=== PATIENT | female | born 1950 | race Caucasian/White ===

== ENCOUNTER 2022-10-09 11:17 | Day surgery (SDC) | payer MEDICARE, OTHER ==
[~2022-10-09 11:17] MED LIST: ALPRAZolam 0.25 MG TAB PO PRN; ASPIRIN 325 MG TAB PO PRN; HEPARIN SODIUM,PORCINE (1 ML) 2,500 UNIT in SODIUM CHLORIDE 0.9% 250 ML IRRIGATION PRN; HEPARIN SODIUM,PORCINE 10,000 UNIT in SODIUM CHLORIDE 0.9% 1,000 ML IRRIGATION PRN; SODIUM CHLORIDE 0.9% 1,000 ML in EMPTY BAG 1 BAG IV ONE; ZOLPIDEM 5 MG TAB PO PRN
[2022-10-09 11:46] VITALS: RESP 18; TEMP 98
[2022-10-09 11:48] LABS: Glucose,Whole Blood 126 mg/dL (70-110)
[2022-10-09 11:51] LABS: Basophils % (A) 0 %; Eosinophils # (A) 0.2 k/uL (0-0.7); Eosinophils % (A) 2 %; HCT 42.4 % (34.0-46.0); HGB 14.2 gm/dL (11.4-16.0); Lymphocytes % (A) 30 %; MCH 29.5 pg (25.0-35.0); MCHC 33.5 g/dL (31.0-37.0); MCV 88.1 fL (80.0-100.0); Mean Platelet Volume 10.3; Monocytes # (A) 0.5 k/uL (0-1.0); Monocytes % (A) 5 %; Neutrophils # (A) 5.8 k/uL (1.3-7.7); Neutrophils % (A) 60 %; Platelet Count 223 k/uL (150-450); RBC 4.81 m/uL (3.80-5.40); RDW 13.4 % (11.5-15.5); WBC 9.7 k/uL (3.8-10.6)
--- NOTE | 2022-10-09 13:09 | P.GSHP ---
History of Present Illness H&P Date: 10/09/22 Chief Complaint: left foot pain 72 year old female with left foot and toe pain secondary to 5th toe dry gangrene and severe PAD presents to the [facility] core[facility] for elective aortogram and runoff with possible left lower extremity revascularization. Denies any fevers, chills, chest pain or shortness of breath. - Review of Systems All systems: negative (what is mentioned in the PMH or HPI) Past Medical History Past Medical History: Diabetes Mellitus, GERD/Reflux, Hyperlipidemia, Hypertension, Skin Disorder, Thyroid Disorder, Vascular Disorder Additional Past Medical History / Comment(s): gangrene left baby toe History of Any Multi-Drug Resistant Organisms: None Reported Past Surgical History: Tonsillectomy Additional Past Surgical History / Comment(s): annmarie cataracts removed Past Anesthesia/Blood Transfusion Reactions: No Reported Reaction Smoking Status: Never smoker Medications and Allergies Home Medications Medication Instructions Recorded Confirmed Type Ergocalciferol [Vitamin D2 (1250 1,250 mcg PO WEEKLY 10/02/22 10/09/22 History Mcg = 42669 Iu)] Levothyroxine Sodium [Synthroid] 75 mcg PO DAILY 10/02/22 10/09/22 History Rosuvastatin Calcium 5 mg PO 1900 10/02/22 10/09/22 History cloNIDine HCL [Catapres] 0.3 mg PO QAM 10/02/22 10/09/22 History metFORMIN HCL [Glucophage] 1,000 mg PO BID 10/02/22 10/09/22 History ramipriL [Altace] 5 mg PO 1900 10/02/22 10/09/22 History Allergies Allergy/AdvReac Type Severity Reaction Status Date / Time Penicillins Allergy Nausea & Verified 10/02/22 15:38 Vomiting ibuprofen AdvReac Nausea & Verified 10/02/22 15:38 Vomiting Surgical - Exam Vital Signs Temp Pulse Resp BP Pulse Ox 98 F 100 18 143/92 98 10/09/22 11:44 10/09/22 11:44 10/09/22 11:44 10/09/22 11:44 10/09/22 11:44 - General well developed, well nourished, no distress - Eyes PERRL, normal ocular movement - ENT normal pinna - Respiratory normal expansion - Cardiovascular Rhythm: regular - Abdomen Abdomen: soft - Neurologic normal coordination - Psychiatric oriented to time, oriented to person, oriented to place non palpable DP or PT pulse on the left. 5th toe with dry gangrene. Results - Labs 10/09/22 11:38 Abnormal Lab Results - Last 24 Hours (Table) 10/09/22 Range/Units 11:41 POC Glucose (mg/dL) 126 H (70-110) mg/dL Assessment and Plan Assessment: Critical limb ischemia with left 5th toe gangrene Plan: To [facility] for aortogram and possible left lower extremity revascularization.
[2022-10-09] MEDS ORDERED: MIDAZOLAM 2 MG/2 ML VIAL IVP ONE (13:27)
[2022-10-09] MEDS ORDERED: fentaNYL (PF) 50 MCG/1 ML VIAL IVP ONE (13:27)
[2022-10-09] MEDS ORDERED: LIDOCAINE 1% INJ 10MG/ML (20 ML MDV) SQ ONE (13:28)
[2022-10-09] MEDS ORDERED: IOPAMIDOL-370 100ML BTL INJ ONE (13:50)
--- NOTE | 2022-10-09 14:11 | P.OP ---
Date of Procedure: 10/09/22 Description of Procedure: Preoperative diagnosis: Critical limb ischemia with left 5th toe gangrene Postop diagnosis: Critical limb ischemia with left fifth toe gangrene, left superficial femoral, popliteal artery occlusion, right below knee tibial artery atherosclerotic disease, right superficial femoral artery multiple areas of stenosis Procedure: Aortogram with bilateral lower extremity runoffs via right common femoral artery access under ultrasound guidance, selective left lower extremity angiogram third order Surgeon: Ken Anesthesia: Moderate sedation times 23 minutes Estimated blood loss: 5 mL Complications: None Condition: Stable Findings: Aorta: Patent without any evidence of significant atherosclerotic disease or stenosis Iliacs: Bilateral common, external and internal iliac arteries are patent without any evidence of significant atherosclerotic disease or stenosis Femorals: Bilateral common femoral and profundus femoris arteries are patent without any evidence of significant atherosclerotic his or stenosis. Bilateral superficial femoral arteries demonstrate multiple areas of stenosis with left distal SFA occlusion Popliteal: Right popliteal artery occlusion just low the knee. Left up to artery occlusion with reconstitution below the knee at the tibioperoneal trunk Tibials: Right anterior tibial posterior tibial and peroneal arteries are diminutive with significant disease throughout. Left tibioperoneal trunk is patent after reconstitution. Anterior tibial artery is occluded at the takeoff the reconstitution noted. Significant stenosis noted in the midportion of the anterior tibial artery. Two-vessel runoff to the ankle Operative narrative: After written informed consent was obtained the patient all risks benefits competitions were described the patient is brought to the [facility] and laid in a supine position. The area of the right groin was prepped and draped in the usual sterile fashion. Local anesthesia with moderate sedation was performed with continuous pulse ox monitoring and EKG monitoring. Utilizing ultrasound the right femoral artery was visualized and shown to be patent without any significant plaque. Utilizing a multipurpose needle under ultrasound guidance the artery was accessed. Guidewire was placed followed by 6-Greenlandic sheath. 035 Glidewire was then placed into the aorta followed by pigtail catheter. Angiogram was then obtained of the aorta. Catheter was then placed at the bifurcation and lower extremity runoffs were obtained. Once completed all guidewires, catheters and sheaths were removed and pressure was placed for hemostasis. Patient tolerated procedure well was sent to PACU for recovery. Patient will require a left femoral to below knee bypass and fifth toe amputation in the next coming weeks. Plan - Discharge Summary Discharge Rx Participant: Yes New Discharge Prescriptions: No Action ramipriL [Altace] 5 mg PO 1900 metFORMIN HCL [Glucophage] 1,000 mg PO BID Levothyroxine Sodium [Synthroid] 75 mcg PO DAILY Rosuvastatin Calcium 5 mg PO 1900 cloNIDine HCL [Catapres] 0.3 mg PO QAM Ergocalciferol [Vitamin D2 (1250 Mcg = 82779 Iu)] 1,250 mcg PO WEEKLY Discharge Medication List Ergocalciferol [Vitamin D2 (1250 Mcg = 42009 Iu)] 1,250 mcg PO WEEKLY 10/02/22 [History] Levothyroxine Sodium [Synthroid] 75 mcg PO DAILY 10/02/22 [History] Rosuvastatin Calcium 5 mg PO 1900 10/02/22 [History] cloNIDine HCL [Catapres] 0.3 mg PO QAM 10/02/22 [History] metFORMIN HCL [Glucophage] 1,000 mg PO BID 10/02/22 [History] ramipriL [Altace] 5 mg PO 1900 10/02/22 [History]
--- NOTE | 2022-10-09 14:41 | IR ---
EXAMINATION TYPE: IR angio abdominal w runoff DATE OF EXAM: 10/09/2022 COMPARISON: NONE HISTORY: Fluoroscopy time. Fluoroscopy was provided to the referring clinician.
[2022-10-09 16:51] VITALS: BP 161/78; PULSE 74
== END 2022-10-09 17:41 | disposition home or self-care (01) ==
LOC: CATHCVL 11:17
PROVIDERS: ATTEND Surgery
DX: E11.52 Type 2 diabetes mellitus with diabetic peripheral angiopathy with gangrene (principal); I70.269 Atherosclerosis of native arteries of extremities with gangrene, unspecified extremity; I77.1 Stricture of artery; E11.36 Type 2 diabetes mellitus with diabetic cataract; E07.9 Disorder of thyroid, unspecified; E78.5 Hyperlipidemia, unspecified; I10 Essential (primary) hypertension; K21.9 Gastro-esophageal reflux disease without esophagitis; Z79.84 Long term (current) use of oral hypoglycemic drugs; Z79.890 Hormone replacement therapy; Z88.0 Allergy status to penicillin; Z79.899 Other long term (current) drug therapy; Z85.828 Personal history of other malignant neoplasm of skin; Z98.890 Other specified postprocedural states; Z88.6 Allergy status to analgesic agent
CPT/HCPCS: 36200; 75625; 75716; 76937; 85025; C1894; C1769 ×3; J2250; J2001; Q9967; J3010

== ENCOUNTER → 2022-11-26 | Outpatient (CLI) | payer MEDICARE, OTHER ==
[~2022-11-26] MED LIST changes: -ALPRAZolam 0.25 MG TAB PO PRN; -ASPIRIN 325 MG TAB PO PRN; +DOBUTamine DRIP for NUC MED 500 MG in DEXTROSE/WATER 1 250ML.BAG IV PRN; -HEPARIN SODIUM,PORCINE (1 ML) 2,500 UNIT in SODIUM CHLORIDE 0.9% 250 ML IRRIGATION PRN; -HEPARIN SODIUM,PORCINE 10,000 UNIT in SODIUM CHLORIDE 0.9% 1,000 ML IRRIGATION PRN; -SODIUM CHLORIDE 0.9% 1,000 ML in EMPTY BAG 1 BAG IV ONE; -ZOLPIDEM 5 MG TAB PO PRN
--- NOTE | 2022-11-26 13:39 | CA ---
Dobutamine Stress Echocardiogram Report Fany Forman Age: 72 Gender: F : 1950 Exam Date: 11/26/2022 10:40 Exam Location: [facility] Ordering Physician: Kp Verma DO ([id number]) Referring Physician: Kp Verma DO Mica Builder: Chauncey Anaya Technologist: Ht (in): 67 Wt (lb): 146 Procedure CPT: Indication: Z01.810, R06.02 shortness of breath ICD-9 Codes: Rhythm: Patient History: HTN, DM, FAMILY HX(FATHER) Cardiac Medications: METFORMIN, IBUPROFEN, RHAMPHIACL, LEVOTHYROXINE Medications in past 24 hours: Contrast: Total Dose (mL): Stress Results Protocol: Dobutamine Peak Dose (???g/kg/min): 30 Duration (min:sec): Atropine:(mg) Target HR: 127 Double Product: [id number] Resting HR: 88 Resting BP: 171 / 90 Peak HR: 137 Peak BP: 209 / 64 Max Predicted HR: 149 92 % Max Predicted HR Stress Summary: BP Response: Reason for Termination: Exceeded target heart rate (85% max predicted) Cardiac Symptoms: ASYMPTOMATIC ECG Analysis Resting EKG: Stress EKG: Arrhythmia: Echo Analysis Base Echo Analysis: Low Echo Anaylsis: Peak Echo Analysis: Recovery Echo: MEASUREMENTS (Male/Female) Normal Values CONCLUSIONS No ECG or echocardiographic evidence for ischemia Stepwise augmentation of overall LV contractility without development of any wall motion abnormalities with dobutamine infusion Normal duodenum a stress echo Dr. Ulisses Cam MD (Electronically Signed) Final Date: 26 November 2022 13:38
--- NOTE | 2022-11-26 14:03 | CA ---
Transthoracic Echo Report Name: Fany Forman Age: 72 Gender: F : 1950 Exam Date: 11/26/2022 11:26 Exam Location: [facility] Ht (in): 67 Wt (lb): 140 Ordering Physician: Kp Verma DO ([id number]) Attending/Referring Phys: Health Technical Writer Yasemin Victor RDCS Procedure CPT: Indications: Z01.810, R06.02 shortness of breath Cardiac Hx: DM Technical Quality: Good Contrast 1: Total Dose (mL): Contrast 2: Total Dose (mL): MEASUREMENTS (Male / Female) Normal Values 2D ECHO LV Diastolic Diameter PLAX 3.7 cm 4.2 - 5.9 / 3.9 - 5.3 cm LV Systolic Diameter PLAX 2.4 cm IVS Diastolic Thickness 1.4 cm 0.6 - 1.0 / 0.6 - 0.9 cm LVPW Diastolic Thickness 1.3 cm 0.6 - 1.0 / 0.6 - 0.9 cm LV Relative Wall Thickness 0.7 RV Internal Dim ED PLAX 2.9 cm LA Systolic Diameter LX 3.7 cm 3.0 - 4.0 / 2.7 - 3.8 cm LV Diastolic Volume MOD 4C 60.3 cm??? LV Systolic Volume MOD 4C 25.7 cm??? LV Ejection Fraction MOD 4C 57.4 % LV Cardiac Index MOD 4C 1819.5 cm???/min???m??? LV Diastolic Length 4C 6.3 cm LV Systolic Length 4C 4.6 cm LV Diastolic Volume MOD 2C 58.1 cm??? LV Systolic Volume MOD 2C 26.1 cm??? LV Ejection Fraction MOD 2C 55.2 % LV Cardiac Index MOD 2C 1683.2 cm???/min???m??? LV Diastolic Length 2C 6.1 cm LV Systolic Length 2C 5.3 cm LA Volume 53.8 cm??? 18 - 58 / 22 - 52 cm??? LA Volume Index 31.0 cm???/m??? 16 - 28 cm???/m??? M-MODE Aortic Root Diameter MM 3.5 cm MV E Point Septal Separation 0.7 cm AV Cusp Separation MM 2.4 cm DOPPLER MV E' Velocity 3.6 cm/s TR Peak Velocity 228.6 cm/s TR Peak Gradient 20.9 mmHg Right Ventricular Systolic Press 25.5 mmHg FINDINGS Left Ventricle Left ventricular ejection fraction is estimated at 55-60 %. Small left ventricular cavity. Moderately increased septal wall thickness. Mildly increased posterior wall thickness. Right Ventricle Normal right ventricular size. Right ventricular systolic pressure within normal limits. Right Atrium Normal right atrial size. Left Atrium Mildly increased left atrial volume. Mitral Valve Structurally normal mitral valve. Trace to mild mitral regurgitation. Aortic Valve Trileaflet aortic valve. No aortic valve stenosis or regurgitation. Tricuspid Valve Structurally normal tricuspid valve. Mild tricuspid regurgitation. Pulmonic Valve Structurally normal pulmonic valve. Trace pulmonic regurgitation. Pericardium No pericardial effusion. Aorta Normal size aortic root and proximal ascending aorta. CONCLUSIONS LVH with preserved systolic function Previewed by: Dr. Ulisses Cam MD (Electronically Signed) Final Date: 26 November 2022 14:03
== END | disposition home or self-care (01) ==
LOC: RADNMMAIN 09:48
PROVIDERS: ATTEND Internal Medicine
DX: Z01.810 Encounter for preprocedural cardiovascular examination (principal); R06.02 Shortness of breath
CPT/HCPCS: 93306; 93351

== ENCOUNTER → 2022-12-17 | Outpatient (CLI) | payer MEDICARE, OTHER ==
[2022-12-17 10:33] LABS: Partial Thromboplastin Time 24.2 sec (22.0-30.0)
[2022-12-17 16:46] LABS: Basophils # (A) 0.05 X 10*3/uL (0.00-0.10); Basophils % (A) 0.7 %; Eosinophils # (A) 0.14 X 10*3/uL (0.04-0.35); Eosinophils % (A) 1.9 %; HCT 43.6 % (37.2-46.3); HGB 13.8 g/dL (12.0-15.0); Lymphocytes # (A) 2.27 X 10*3/uL (0.90-5.00); Lymphocytes % (A) 30.9 %; MCH 28.4 pg (27.0-32.0); MCHC 31.7 g/dL (32.0-37.0); MCV 89.7 FL (80.0-97.0); Monocytes # (A) 0.37 X 10*3/uL (0.20-1.00); NRBC Per 100 WBC 0 X 10*3/uL (0.00-0.01); Neutrophils # (A) 4.49 X 10*3/uL (1.80-7.70); Neutrophils % (A) 61.2 %; Platelet Count 254 X 10*3/uL (140-440); RBC 4.86 X 10*6/uL (4.10-5.20); RDW 13.2 % (11.5-14.5); WBC 7.34 X 10*3/uL (4.50-10.00)
== END | disposition home or self-care (01) ==
LOC: LABWHC1 08:53
PROVIDERS: ATTEND Surgery
DX: Z01.812 Encounter for preprocedural laboratory examination (principal); I73.9 Peripheral vascular disease, unspecified
CPT/HCPCS: 36415; 85025; 85610; 85730; 86850; 86900; 86901

== ENCOUNTER 2022-12-21 09:03 | Inpatient (IN) | payer MEDICARE, OTHER ==
[~2022-12-21 09:03] MED LIST changes: +DEXAMETHASONE SOD PHOSPHATE 4 MG/ML 1 ML VIAL IV ONE; -DOBUTamine DRIP for NUC MED 500 MG in DEXTROSE/WATER 1 250ML.BAG IV PRN; +HYDROmorphone 0.5 MG/0.5 ML SYRINGE IVP PRN; +LIDOCAINE 1% (10MG/ML) FOR IV START INTRADERMA PRN; +ONDANSETRON 4 MG/2 ML VIAL IVP ONE; +droPERidol 5 MG/2 ML VIAL IVP ONE
[2022-12-21 10:21] LABS: Glucose,Whole Blood 128 mg/dL (70-110)
[2022-12-21] MEDS: LACTATED RINGERS 1,000 ML IV SCH (10:31)
[2022-12-21] MEDS ORDERED: MIDAZOLAM 2 MG/2 ML VIAL IVP ONE (11:04)
--- NOTE | 2022-12-21 11:32 | P.ANPRN ---
Procedure Note - Anesthesia - Invasive Line Left Arterial Line Time Out Performed: Yes (1103) Date of Procedure: 12/21/22 Time of Procedure: 11:04 Location of Patient: PreOp Preparation: Sterile Prep, Sterile Dressing Arterial Line Location: Briachial (left attempts x2) Ultrasound Used: Yes Purpose - Visualization and Identification of Vasculature: Yes Needle Guage: 20g Image Stored and Saved: Yes Narrative: Central line placement per sterile protocol utilized. attempts x2
[2022-12-21] MEDS ORDERED: THROMBIN (BOVINE) 5,000 UNIT VIAL TOPICAL ONE (12:05)
[2022-12-21] MEDS ORDERED: GELATIN SPONGE,ABSORB (LARGE) 1 EACH SPONGE TOPICAL ONE (12:05)
[2022-12-21] MEDS ORDERED: LIDOCAINE 1% INJ 10MG/ML (20 ML MDV) SQ ONE (12:05)
[2022-12-21] MEDS ORDERED: SUCCINYLCHOLINE CHLORIDE 200 MG/10 ML VIAL IV ONE (12:12)
[2022-12-21] MEDS ORDERED: NEOSTIGMINE 1 MG/ML 10 ML VIAL ONE (12:12)
[2022-12-21] MEDS ORDERED: HYDROmorphone (PF) 1 MG/ML ONE (12:12)
[2022-12-21] MEDS ORDERED: MIDAZOLAM 2 MG/2 ML VIAL ONE (12:12)
[2022-12-21] MEDS ORDERED: GLYCOPYRROLATE 0.2 MG/ML 2 ML VIAL ONE (12:12)
[2022-12-21] MEDS ORDERED: fentaNYL (PF) 50 MCG/ML 2 ML AMP ONE (12:12)
[2022-12-21] MEDS ORDERED: PROPOFOL 10 MG/ML 20 ML VIAL IV ONE (12:12)
[2022-12-21] MEDS ORDERED: LIDOCAINE 1% INJ 10MG/ML (20 ML MDV) ONE (12:12)
[2022-12-21] MEDS ORDERED: HEPARIN SODIUM,PORCINE 10,000 UNIT/ML 1 ML VIAL ONE (12:12)
[2022-12-21] MEDS ORDERED: PHENYLEPHRINE 10 MG/ML 5 ML VIAL ONE (12:12)
[2022-12-21] MEDS ORDERED: ePHEDrine 50 MG/ML 1 ML VIAL ONE (12:12)
[2022-12-21] MEDS ORDERED: ROCURONIUM 10 MG/ML (5 ML VIAL) IV ONE (12:12)
--- NOTE | 2022-12-21 12:16 | P.GSHP ---
History of Present Illness H&P Date: 12/21/22 Chief Complaint: left 5th toe gangrene, femoral occlusion 72 year old female with critical limb ischemia and left 5th toe gangrene presents today for left femoral-popliteal below knee bypass with in-situ greater saphenous vein. She had previous arterial doppler and angiogram which demonstrated TASC D lesion and need for bypass. She denies any fevers, chills, chest pain or shortness of breath. - Review of Systems All systems: negative (what is mentioned in the PMH or HPI) Past Medical History Past Medical History: Diabetes Mellitus, GERD/Reflux, Hyperlipidemia, Hypertension, Thyroid Disorder, Vascular Disorder Additional Past Medical History / Comment(s): Gangrene left baby toe, left lower extremity claudication, NIDDM type II, History of Any Multi-Drug Resistant Organisms: None Reported Past Surgical History: Tonsillectomy Additional Past Surgical History / Comment(s): Aortagrams with run-offs, annmarie cataracts removed Past Anesthesia/Blood Transfusion Reactions: No Reported Reaction Additional Past Anesthesia/Blood Transfusion Reaction / Comment(s): 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 Medications and Allergies Home Medications Medication Instructions Recorded Confirmed Type Ergocalciferol [Vitamin D2 (1250 1,250 mcg PO CAI 10/02/22 12/16/22 History Mcg = 21035 Iu)] Levothyroxine Sodium [Synthroid] 75 mcg PO QAM 10/02/22 12/16/22 History Rosuvastatin Calcium 5 mg PO 1900 10/02/22 12/16/22 History cloNIDine HCL [Catapres] 0.3 mg PO QAM 10/02/22 12/16/22 History metFORMIN HCL [Glucophage] 1,000 mg PO BID 10/02/22 12/16/22 History ramipriL [Altace] 5 mg PO 1900 10/02/22 12/16/22 History Allergies Allergy/AdvReac Type Severity Reaction Status Date / Time Penicillins Allergy Nausea & Verified 12/21/22 09:50 Vomiting ibuprofen AdvReac Nausea & Verified 12/21/22 09:50 Vomiting Surgical - Exam Vital Signs Temp Pulse Resp BP Pulse Ox 97.1 F L 104 H 16 152/74 98 12/21/22 10:05 12/21/22 10:05 12/21/22 10:05 12/21/22 10:05 12/21/22 10:05 - General well developed, well nourished, no distress - Eyes PERRL, normal ocular movement - ENT normal pinna, normal nares - Neck no masses - Respiratory normal expansion, normal respiratory effort - Cardiovascular Rhythm: regular - Abdomen Abdomen: soft, non tender - Integumentary no rash, no growths - Neurologic normal coordination, no normal sensation - Psychiatric oriented to time, oriented to person, oriented to place non palpable DP or PT pulse on the left Results - Labs Abnormal Lab Results - Last 24 Hours (Table) 12/21/22 Range/Units 10:19 POC Glucose (mg/dL) 128 H (70-110) mg/dL Assessment and Plan Assessment: left lower extremity critical limb ischemia left femoral artery occlusive disease left 5th toe gangrene Plan: To OR for left femoral- below knee bypass and 5th toe amputation.
[2022-12-21] MEDS ORDERED: ceFAZolin 4,000 MG in SODIUM CHLORIDE 0.9% 1,000 ML IRRIGATION ONE (12:17)
[2022-12-21] MEDS ORDERED: HEPARIN SODIUM,PORCINE 10,000 UNIT in SODIUM CHLORIDE 0.9% 1,000 ML IRRIGATION ONE (12:17)
[2022-12-21] MEDS ORDERED: LACTATED RINGERS 1,000 ML IV ONE (14:56)
[2022-12-21] MEDS ORDERED: MORPHINE SULFATE 4 MG/ML SYRINGE IVP PRN (17:27)
--- NOTE | 2022-12-21 17:27 | P.OP ---
Date of Procedure: 12/21/22 Description of Procedure: Preoperative diagnosis: Left critical limb ischemia with fifth toe gangrene. Left femoral, popliteal artery occlusion Postoperative diagnosis: Same Procedure: Left Femoral-tibial artery bypass with in situ greater saphenous vein graft. Left 5th toe amputation Surgeon: Oliver Rogers D.O. Anesthesia: General Estimated blood loss: 100cc Complications: None Condition: Stable Disposition: Palpable left PT pulse Indication for procedure: 72 year old female with history of left 5th toe gangrene, PAD with recent angiogram demonstrating occlusion of left SFA and popliteal artery with reconstitution below knee tibial peroneal trunk. Presents to the hospital for femoral tibial bypass and 5th toe amputation. Operative narrative: After written and informed consent was obtained from the patient all risks benefits and competitions were described the patient is brought to the operative suite and laid in a supine position. The area of the abdomen, left lower extremity was prepped and draped in usual sterile fashion after appropriate anesthetic was performed per the anesthesiologist. A timeout was performed in normal fashion. Antibiotics were administered prior to incision. An oblique incision was created at the left groin and dissection was carried down to the common femoral artery. The common femoral, superficial femoral and profundus femoris arteries were dissected free in a circumferential manner and controlled with vessel loops. Attention was then placed to the greater saphenous vein which was dissected free up to the saphenofemoral junction. A vessel loop was then placed around this area. Attention was then placed distally and a transverse incision was created on the medial aspect of the lower leg just below the knee with a 15 blade scalpel. Dissection was then carried down with electrocautery through the fascia to the popliteal artery. Popliteal artery, tibioperoneal trunk was then dissected free in a circumferential manner and controlled with vessel loops. The anterior tibial artery was also dissected free and visualized. Once controlled attention was then placed to dissection of the greater saphenous vein. Meticulous dissection was then performed of the greater saphenous vein and controlled with a blue vessel loop. Patient was then administered heparin. The proximal greater saphenous vein was then resected and suture ligated at the saphenofemoral junction. The vein was then brought over to the femoral artery and the artery was clamped both proximally and distally. Arteriotomy was then created with 11 blade scalpel and extended with Pott Wall scissors. End-to-side anastomosis was then created with 6-0 Prolene suture in a running fashion after the vein was dilated with serial dilation. Good backbleeding was noted from the vein and good brisk forward bleeding was noted from the artery. Final sutures were then placed good pulsatile blood flow was noted within the vein bypass. The vein was then ligated distally and utilizing a valvulotome the valves were destroyed up to the proximal aspect at the previous anastomosis until there was good pulsatile bleeding noted through the bypass. The tibial peroneal trunk was then controlled and arteriotomy was created with 11 blade scalpel and extended with Pott Wall scissors. There was good backbleeding noted. The vein was then spatulated and an end-to-side anastomosis was created with 6-0 Prolene suture in a running fashion. Prior to last sutures being placed backbleeding was once again assessed which was adequate and proximal control was released revealing good pulsatile blood flow. Final sutures were placed and good pulsatile blood flow was noted within the bypass. Doppler signals were then noted distal to the bypass and were multiphasic. The areas were then copiously irrigated with antibiotic solution. The incisions were then closed in a multilayer fashion after hemostasis was assured with Gelfoam and thrombin and the skin was then cleansed and dressings were placed. Attention was then placed to the fifth toe amputation. A racquet incision was then created around the fifth toe with a 15 blade scalpel and dissection was carried down to the metatarsal bone which was removed with bone cutters. The toe was then sent off for pathology. Hemostasis was assured with electrocautery. The area was irrigated and suctioned dry. Incision was then closed with 3-0 nylon suture in a vertical mattress fashion. The patient tolerated procedure well, and had a palpable PT pulse and was sent to PACU for recovery.
[2022-12-21 17:28] LABS: Glucose,Whole Blood 166 mg/dL (70-110)
[2022-12-21] MEDS ORDERED: HYDROmorphone 0.5 MG/0.5 ML SYRINGE IVP ONE (17:54)
[2022-12-21] MEDS ORDERED: LABETALOL SYRINGE 5 MG/ML (4 ML SYR) IVP ONE (18:12)
[2022-12-21 20:17] VITALS: RESP 16
[2022-12-21 20:47] LABS: Glucose,Whole Blood 203 mg/dL (70-110)
[2022-12-21] MEDS ORDERED: DEXTROSE 50% SYRINGE 50 ML IVP PRN ×2 (21:14)
[2022-12-21] MEDS: metFORMIN 500 MG TAB PO SCH (21:56)
[2022-12-21] MEDS: INSULIN ASPART (NovoLOG) 100 UNIT/ML VIAL SQ SCH (21:56)
[2022-12-21] MEDS: SODIUM CHLORIDE 0.9% 1,000 ML IV SCH (22:12)
[2022-12-21] MEDS: MORPHINE SULFATE 2 MG/ML SYRINGE IVP PRN (22:17)
[2022-12-22] MEDS: MORPHINE SULFATE 2 MG/ML SYRINGE IVP PRN ×3 (01:10→06:41)
[2022-12-22 06:13] LABS: Glucose,Whole Blood 122 mg/dL (70-110)
[2022-12-22] MEDS: INSULIN ASPART (NovoLOG) 100 UNIT/ML VIAL SQ SCH ×3 (06:24→16:49)
[2022-12-22] MEDS: SODIUM CHLORIDE 0.9% 1,000 ML IV SCH ×2 (06:24→16:45)
[2022-12-22] MEDS: LEVOTHYROXINE 75 MCG TAB PO SCH (06:40)
[2022-12-22] MEDS: LACTATED RINGERS 1,000 ML IV SCH (08:28)
[2022-12-22] MEDS: cloNIDine HCL 0.1 MG TAB PO SCH (08:43)
[2022-12-22] MEDS: metFORMIN 500 MG TAB PO SCH ×2 (08:43→21:00)
[2022-12-22] MEDS ORDERED: HYDROcodone/APAP 5-325MG 1 EACH TAB PO PRN (08:52)
--- NOTE | 2022-12-22 10:22 | P.PN ---
Subjective Progress Note Date: 12/22/22 Principal diagnosis: Left critical limb ischemia with fifth toe gangrene Patient is seen and examined today as a follow-up. She is postop day #1 for left femoral tibial artery bypass with in situ vein graft. Left fifth toe amputation. She states she does have some pain at the left groin incision site as well as some pain/burning her left fifth toe amputation site. She still has Akhtar catheter in place and has been on bed rest. She denies any chest pain, shortness of breath, abdominal pain, nausea or vomiting. She is afebrile. Objective - Vital Signs Vital signs: Vital Signs Temp 97.9 F 12/22/22 04:40 Pulse 78 12/22/22 04:40 Resp 16 12/22/22 04:40 BP 125/59 12/22/22 04:40 Pulse Ox 95 12/22/22 04:40 FiO2 Intake & Output 12/21/22 12/22/22 12/22/22 18:59 06:59 18:59 Intake Total 1852 Output Total 530 850 Balance 1322 -850 Weight 66.3 kg Intake: IV 1852 Output: Urine 430 850 Estimated Blood Loss 100 Other: Voiding Method Indwelling Catheter - Exam General appearance: The patient is alert, oriented, appears in no acute distress. HET: Head is normocephalic and atraumatic. Pupils are equal and reactive. Neck: Supple. Heart: Regular. Lungs: Equal expansion, normal respiratory effort. Abdomen: Soft, nontender, nondistended. Extremities: Normal skin color and turgor. Left groin with Prevena dressing in place with good suction. Palpable left lower extremity graft. Left foot with dressing clean dry and intact. Neurological: No focal deficits. - Labs Labs: Abnormal Lab Results - Last 24 Hours (Table) 12/21/22 12/21/22 12/21/22 Range/Units 10:19 17:27 20:45 POC Glucose (mg/dL) 128 H 166 H 203 H (70-110) mg/dL 12/22/22 Range/Units 06:11 POC Glucose (mg/dL) 122 H (70-110) mg/dL Assessment and Plan Assessment: 1. Postop day #1 left femoral tibial artery bypass with in situ greater saphenous vein graft and left fifth toe amputation 2. Left femoral-popliteal artery occlusion 3. Left critical limb ischemia with fifth toe gangrene 4. Diabetes mellitus 5. Hyperlipidemia 6. Hypertension 7. Thyroid disorder Plan: 1. Postop shoe to left foot 2. Encourage ambulation, heel walk only on left foot 3. Discontinue Akhtar catheter 4. Leave dressing in place, will change left foot dressing tomorrow 5. Anticipate discharge tomorrow The impression and plan of care has been dictated as directed. I performed a history and examination of this patient, discussed the same with the dictator. I agree with the dictator's note ,documented as a scribe. Any additional findings or plans will be noted.
[2022-12-22 11:36] LABS: Glucose,Whole Blood 142 mg/dL (70-110)
[2022-12-22 16:08] LABS: Glucose,Whole Blood 153 mg/dL (70-110)
[2022-12-22] MEDS ORDERED: lisinopriL 20 MG TAB PO SCH (19:00)
[2022-12-22] MEDS ORDERED: ATORVASTATIN 10 MG TAB PO SCH (19:00)
[2022-12-22 20:21] LABS: Glucose,Whole Blood 127 mg/dL (70-110)
[2022-12-23] MEDS: INSULIN ASPART (NovoLOG) 100 UNIT/ML VIAL SQ SCH ×3 (05:43→12:31)
[2022-12-23 06:31] LABS: Glucose,Whole Blood 112 mg/dL (70-110)
[2022-12-23] MEDS: LEVOTHYROXINE 75 MCG TAB PO SCH (06:40)
--- NOTE | 2022-12-23 06:43 | P.DS ---
Providers Date of admission: 12/21/22 09:03 Expected date of discharge: 12/23/22 Attending physician: Oliver Rogers DO Primary care physician: Chantal Mejia [facility] Course: 72-year-old female who had critical limb ischemia and left fifth toe gangrene due to femoral occlusion presented for a left femoral popliteal below the knee bypass with in situ greater saphenous vein. She is postop day #2. She has been up and ambulating. Her pain has been well-controlled. She's been afebrile. Patient has been unable to void on her own since surgery. She has been straight cathed through the night per 750 mL clear yellow urine early this morning. She has palpable left lower extremity bypass. Left fifth toe amputation site clean dry and intact. She has a Prevena wound vac in place. Urology was consulted and had seen and evaluated patient. Patient was able to void small amount. They recommend monitoring patient for a couple more hours and if she is able to void on her own may be discharged otherwise will need to be discharged with Akhtar catheter with follow-up urology in 1-2 weeks. WBC 11.4 hemoglobin 11.1 and platelet count 151,000 sodium 137 potassium 3.6 BUN 10 creatinine 0.68 glucose 147 Exam General appearance: The patient is alert, oriented, appears in no acute distress. HET: Head is normocephalic and atraumatic. Pupils are equal and reactive. Neck: Supple. Heart: Regular. Lungs: Equal expansion, normal respiratory effort. Abdomen: Soft, nontender, nondistended. Extremities: Normal skin color and turgor. Left groin with Prevena dressing in place with good suction. Palpable left lower extremity bypass the warm to the touch. Left foot with dressing clean dry and intact. Incision site with sutures well approximated. Neurological: No focal deficits. Assessment: 1. Postop day #2 left femoral tibial artery bypass with in situ greater saphenous vein graft and left fifth toe amputation 2. Left femoral-popliteal artery occlusion 3. Left critical limb ischemia with fifth toe gangrene 4. Diabetes mellitus 5. Hyperlipidemia 6. Hypertension 7. Thyroid disorder 8. Postop urinary retention Plan: 1. Postop shoe to left foot 2. Encourage ambulation, heel walk only on left foot 3. Keep Prevena dressing in place until 12/28/22 4. Dressing changed to left fifth toe amputation site 5. Consult urology for postop urinary retention 6. Discharge instructions reviewed with patient. Patient verbalized understanding. 7. Discharge home with home health care pending clearance from urology The impression and plan of care has been dictated as directed. I performed a history and examination of this patient, discussed the same with the dictator. I agree with the dictator's note ,documented as a scribe. Any additional findings or plans will be noted. Procedures: Preoperative diagnosis: Left critical limb ischemia with fifth toe gangrene. Left femoral, popliteal artery occlusion Postoperative diagnosis: Same Procedure: Left Femoral-tibial artery bypass with in situ greater saphenous vein graft. Left 5th toe amputation Surgeon: Oliver Rogers D.O. Patient Condition at Discharge: Stable Plan - Discharge Summary Discharge Rx Participant: No New Discharge Prescriptions: New HYDROcodone/APAP 5-325MG [Garita 5-325] 1 each PO Q6HR PRN #12 tab PRN Reason: Pain Scale 6 To 7 Clopidogrel [Plavix] 75 mg PO DAILY #30 tab Continue ramipriL [Altace] 5 mg PO 1900 metFORMIN HCL [Glucophage] 1,000 mg PO BID Levothyroxine Sodium [Synthroid] 75 mcg PO QAM Rosuvastatin Calcium 5 mg PO 1900 cloNIDine HCL [Catapres] 0.3 mg PO QAM Ergocalciferol [Vitamin D2 (1250 Mcg = 86620 Iu)] 1,250 mcg PO CAI Discharge Medication List Ergocalciferol [Vitamin D2 (1250 Mcg = 66853 Iu)] 1,250 mcg PO CAI 10/02/22 [History] Levothyroxine Sodium [Synthroid] 75 mcg PO QAM 10/02/22 [History] Rosuvastatin Calcium 5 mg PO 1900 10/02/22 [History] cloNIDine HCL [Catapres] 0.3 mg PO QAM 10/02/22 [History] metFORMIN HCL [Glucophage] 1,000 mg PO BID 10/02/22 [History] ramipriL [Altace] 5 mg PO 1900 10/02/22 [History] Clopidogrel [Plavix] 75 mg PO DAILY #30 tab 12/23/22 [Rx] HYDROcodone/APAP 5-325MG [Garita 5-325] 1 each PO Q6HR PRN #12 tab 12/23/22 [Rx] Follow up Appointment(s)/Referral(s): Jackie Cornejo MD [Primary Care Provider] - 1 Week Oliver Rogers DO [STAFF PHYSICIAN] - 2 Weeks Guillaume Mcfadden MD [STAFF PHYSICIAN] - 1 Week (I would see her in 1 week if she goes home with a Akhtar. If she does not go home with the Akhtar then I do not need to see her.) [employer] [NON-STAFF] - (Check with them if you want a shower chair. ) Patient Instructions/Handouts: *Surgery [facility] - Akhtar Catheter Instructions, Clopidogrel (By mouth), Femoropopliteal Bypass (DC) Activity/Diet/Wound Care/Special Instructions: No driving until cleared by surgeon Avoid heavy lifting greater than 10 lbs , pushing, pulling, straining, flights of stairs for 2 weeks Sponge bath only until left groin dressing discontinued then may shower but no tub baths or soaking until cleared by surgeon signs of infection ie: fever, rash, drainage from puncture site, swelling contact doctor or return to ER immediately. Heavy bleeding from puncture site apply firm direct pressure and return to ER. Do not attempt to drive self. low sodium/low fat diet Keep left groin Prevena dressing in place for 6 days. May shut off, remove and discard on 12/28/2022 Where postop shoe to left foot, heel walk only Dressing change daily with 4 x 4 and Kerlix [facility] [phone] Discharge/Stand Alone Forms: Who Do I Call? Discharge Disposition: HOME WITH HOME HEALTH SERVICES
[2022-12-23] MEDS: SODIUM CHLORIDE 0.9% 1,000 ML IV SCH (09:23)
[2022-12-23] MEDS: LACTATED RINGERS 1,000 ML IV SCH (09:23)
[2022-12-23] MEDS: metFORMIN 500 MG TAB PO SCH (09:26)
[2022-12-23] MEDS: cloNIDine HCL 0.1 MG TAB PO SCH (09:26)
[2022-12-23] MEDS ORDERED: CLOPIDOGREL 75 MG TAB PO SCH (10:00)
[2022-12-23 11:02] VITALS: TEMP 98.3
[2022-12-23 11:04] LABS: HCT 34.2 % (34.0-46.0); HGB 11.1 gm/dL (11.4-16.0); MCH 28.8 pg (25.0-35.0); MCHC 32.6 g/dL (31.0-37.0); MCV 88.4 fL (80.0-100.0); Mean Platelet Volume 10.1; Platelet Count 151 k/uL (150-450); RBC 3.87 m/uL (3.80-5.40); RDW 13.4 % (11.5-15.5); WBC 11.4 k/uL (3.8-10.6)
[2022-12-23 11:15] LABS: African American GFR (CKD) >90 (>60 ml/min/1.73 sqM); Anion Gap 7 mmol/L; Blood Urea Nitrogen 10 mg/dL (7-17); Calcium 8.8 mg/dL (8.4-10.2); Carbon Dioxide 24 mmol/L (22-30); Chloride 106 mmol/L (98-107); Glucose 147 mg/dL (74-99); Non-African American GFR(CKD) 88 (>60 ml/min/1.73 sqM); Potassium 3.6 mmol/L (3.5-5.1); Sodium 137 mmol/L (137-145)
[2022-12-23 11:40] LABS: Glucose,Whole Blood 150 mg/dL (70-110)
--- NOTE | 2022-12-23 12:25 | P.GSCN ---
History of Present Illness Consult date: 12/23/22 History of present illness: 72-year-old female who underwent a left fem-pop bypass and fifth toe amputation on the left foot yesterday. She has postoperative urine retention a few times, up to 700 mL We are asked see the patient. There is a family history of postoperative retention. She has never had postoperative retention. The first time she's ever been in the hospital. She denies problems urinating, incontinence infections vaginal issues or bladder issues prior to hospitalization Review of Systems All systems: negative - Constitutional Denies fever, Denies weight loss - EENT Eyes: denies blurred vision Ears, nose, mouth and throat: Denies dysphagia - Cardiovascular Denies chest pain, Denies shortness of breath - Respiratory Denies cough, Denies 7 - Gastrointestinal Reports as per HPI - Genitourinary Genitourinary: Denies dysuria, Denies hematuria - Integumentary Denies rash, Denies unusual bruising - Neurological Denies headaches, Denies syncope - Hematologic/Lymphatic Denies easy bleeding, Denies easy bruising Past Medical History Past Medical History: Diabetes Mellitus, GERD/Reflux, Hyperlipidemia, Hypertension, Thyroid Disorder, Vascular Disorder Additional Past Medical History / Comment(s): Gangrene left baby toe, left lower extremity claudication, NIDDM type II, History of Any Multi-Drug Resistant Organisms: None Reported Past Surgical History: Tonsillectomy Additional Past Surgical History / Comment(s): Aortagrams with run-offs, annmarie cataracts removed Past Anesthesia/Blood Transfusion Reactions: No Reported Reaction Additional Past Anesthesia/Blood Transfusion Reaction / Comm: PATIENT HAS EXTREME CLAUSTERPHOBIA FROM CHILDHOOD TRAUMA Smoking Status: Never smoker - Past Family History Father Family Medical History: Myocardial Infarction ([place]) Additional Family Medical History / Comment(s): at 49 yrs from [place] Mother Family Medical History: CVA/TIA Additional Family Medical History / Comment(s): Mother at 59yrs. Medications and Allergies Home Medications Medication Instructions Recorded Confirmed Type Ergocalciferol [Vitamin D2 (1250 1,250 mcg PO CAI 10/02/22 12/16/22 History Mcg = 58094 Iu)] Levothyroxine Sodium [Synthroid] 75 mcg PO QAM 10/02/22 12/16/22 History Rosuvastatin Calcium 5 mg PO 1900 10/02/22 12/16/22 History cloNIDine HCL [Catapres] 0.3 mg PO QAM 10/02/22 12/16/22 History metFORMIN HCL [Glucophage] 1,000 mg PO BID 10/02/22 12/16/22 History ramipriL [Altace] 5 mg PO 1900 10/02/22 12/16/22 History Clopidogrel [Plavix] 75 mg PO DAILY #30 tab 12/23/22 Rx HYDROcodone/APAP 5-325MG [Gordo 1 each PO Q6HR PRN #12 tab 12/23/22 Rx 5-325] Allergies Allergy/AdvReac Type Severity Reaction Status Date / Time Penicillins Allergy Nausea & Verified 12/21/22 09:50 Vomiting ibuprofen AdvReac Nausea & Verified 12/21/22 09:50 Vomiting Surgical - Exam Vital Signs Temp Pulse Resp BP Pulse Ox 97.1 F L 104 H 16 152/74 98 12/21/22 10:05 12/21/22 10:05 12/21/22 10:05 12/21/22 10:05 12/21/22 10:05 - General well developed, well nourished, no distress - Eyes normal ocular movement, no icteric - ENT no hearing loss, no congestion - Neck no masses, trachea midline - Respiratory normal respiratory effort, clear to auscultation - Abdomen Abdomen: soft, non tender, no guarding, no rigid, no rebound - Integumentary no rash, no abnormal pigmentation - Neurologic no disoriented, no combative - Psychiatric oriented to time, oriented to person, oriented to place, speech is normal, memory intact Results - Labs 12/23/22 10:46 12/23/22 10:46 Abnormal Lab Results - Last 24 Hours (Table) 12/22/22 12/22/22 12/22/22 Range/Units 08:17 11:28 16:06 WBC (3.8-10.6) k/uL Hgb (11.4-16.0) gm/dL POC Glucose (mg/dL) 142 H 153 H (70-110) mg/dL Hemoglobin A1c 6.9 H (<=6.0) % 12/22/22 12/23/22 12/23/22 Range/Units 20:19 06:18 10:46 WBC 11.4 H (3.8-10.6) k/uL Hgb 11.1 L (11.4-16.0) gm/dL POC Glucose (mg/dL) 127 H 112 H (70-110) mg/dL Hemoglobin A1c (<=6.0) % Diabetes panel 12/22/22 Range/Units 08:17 Hemoglobin A1c 6.9 H (<=6.0) % Assessment and Plan Assessment: Impression: Peripheral vascular disease postop surgical repair. Postoperative urinary retention Recommendations: I would give her 1 more voiding trial since she was last catheterized over an hour ago. She is unable to void I would replace the Akhtar and discharge her home with a Ahktar. She should follow with me in one week for a voiding trial. She does not wish to do intermittent catheterization. If she voids adequately I do not need to see her.
[2022-12-23 13:48] VITALS: BP 128/57; PULSE 83
--- NOTE | 2022-12-24 17:58 | CDI ---
Documentation Clarification Form Date: 12/24/2022 05:54:15 PM From: Wendy Grant Phone: Admit Date: 12/21/2022 09:03:00 AM Patient Name: Fany Forman Visit Number: [id number] Discharge Date: 12/23/2022 03:57:00 PM ATTENTION: The Clinical Documentation Specialists (CDI) and [facility] Coding Staff appreciate your assistance in clarifying documentation. Please respond to the clarification below the line at the bottom and electronically sign. The CDI & [facility] Coding staff will review the response and follow-up if needed. Please note: Queries are made part of the Legal Health Record. If you have any questions, please contact the author of this message via ITS. Dr. Oliver Rogers The final diagnosis of the pathology report states acute osteomyelitis. Coding guidelines do not allow coding professionals to code based on pathology results; therefore, clarification is requested. History/risk factors: 72yo F, DMII w LT critical limb ischemiawith fifth toegangrene, LT femoral, poplitealartery occlusion, HLD, HTN, Clinical Indicators: previous arterialDopplerand angiogram which demonstrated TASC Dlesionand need forbypass. Treatment: LeftFemoral-tibial artery bypasswith in situ greater saphenous vein graft. Left 5thtoe amputation Please clarify if you agree with the pathology report diagnosis of acute osteomyelitis: [x ] Yes [ ] No [ ] Other (please specify) [ ] Unable to determine (Template Last Revised: April 2020) MTDD
[2022-12-27] MEDS ORDERED: ERGOCALCIFEROL 1,250 MCG (50,000 IU) CAPSULE PO SCH (09:00)
== END 2022-12-23 15:57 | disposition home health service (06) | DRG 253 ==
LOC: 2ORMAIN 09:03 → 3SCARD 17:52
PROVIDERS: ADMIT Surgery; ATTEND Surgery
PROC: 0Y6Y0Z0 Detachment at Left 5th Toe, Complete, Open Approach (ICD-10-PCS; principal; 2022-12-21 11:30)
PROC: 041L09N Bypass Left Femoral Artery to Posterior Tibial Artery with Autologous Venous Tissue, Open Approach (ICD-10-PCS; 2022-12-21 11:30)
DX: E11.52 Type 2 diabetes mellitus with diabetic peripheral angiopathy with gangrene (principal); I70.262 Atherosclerosis of native arteries of extremities with gangrene, left leg; M86.172 Other acute osteomyelitis, left ankle and foot; E11.69 Type 2 diabetes mellitus with other specified complication; I10 Essential (primary) hypertension; R33.9 Retention of urine, unspecified; E78.5 Hyperlipidemia, unspecified; Z79.890 Hormone replacement therapy; Z79.84 Long term (current) use of oral hypoglycemic drugs; Z79.02 Long term (current) use of antithrombotics/antiplatelets; Z79.899 Other long term (current) drug therapy; Z88.0 Allergy status to penicillin; Z88.6 Allergy status to analgesic agent; Z82.49 Family history of ischemic heart disease and other diseases of the circulatory system
CPT/HCPCS: 80048; 83036; 85027; 88305; 88311